=== PATIENT | male | born 1975 | race Caucasian/White ===

== ENCOUNTER 2024-12-25 08:44 | Emergency (ER) | payer OTHER, SELFPAY ==
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
[2024-12-25 09:13] VITALS: BP 159/103; PULSE 88; RESP 15; TEMP 37.1; O2SAT 99; BMI 29.3
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
--- NOTE | 2024-12-25 09:33 | PC.NURSE ---
Pt needing reassurance of all cares provided. Discussed reasoning for all services provided. Pt reluctant.
[2024-12-25 10:12] VITALS: BP 135/78; PULSE 85; RESP 16; TEMP 36.9; O2SAT 98
[2024-12-25] MEDS: IBUPROFEN 400 MG TABLET 800 MG PO (10:23)
== END 2024-12-25 11:00 | disposition home or self-care (01) ==
PROVIDERS: Emergency Provider Emergency Medicine
DX: S06.0X0A Concussion without loss of consciousness, initial encounter (principal); R29.810 Facial weakness; S00.83XA Contusion of other part of head, initial encounter; W18.09XA Striking against other object with subsequent fall, initial encounter; F17.210 Nicotine dependence, cigarettes, uncomplicated
CPT/HCPCS: 70450; 70486; 72125; 99283; 99284